=== PATIENT | female | born 2000 | race Two or more races ===

== ENCOUNTER → 2021-03-03 08:22 | Outpatient (CLI) | payer OTHER | END | disposition home or self-care (01) | LOC: PPH VACUNA 08:22 | DX: Z23 Encounter for immunization (principal) ==

== ENCOUNTER 2021-03-24 | Outpatient (CLI) | payer OTHER | END 2021-03-24 14:38 | disposition home or self-care (01) | LOC: PPH VACUNA | DX: Z23 Encounter for immunization (principal) ==